=== PATIENT | female | born 1995 | race Caucasian/White ===

== ENCOUNTER → 2019-12-05 | Outpatient (CLI) | payer OTHER ==
[~2019-12-05] MED LIST: METHACHOLINE KIT (J7674) INH ONE
--- NOTE | 2019-12-12 11:40 | PFTRPT ---
Height: 64.00 Inches Weight: 240.00 Lbs BSA: 2.11 Diagnosis: R06.02 DATE: 12/05/2019 ORDERED BY: Malcom Miller M.D. QUALITY: Study of excellent technical quality. PROCEDURE: Under protocol, methacholine was administered. At a dose of 10 mg or 63.875 CDUs, a 21% decline of the FEV1 was noted. PC of 8.56 is in the borderline category. Flow rates did return to baseline post-bronchodilator administration. IMPRESSION: Indeterminate methacholine challenge study. Please correlate clinically. MTDD
== END ==
LOC: M CARPUL 10:57
PROVIDERS: ATTEND Internal Medicine Pulmonary Disease
DX: R06.02 Shortness of breath (principal)
CPT/HCPCS: 94070; J7674